=== PATIENT | female | born 1960 | race Caucasian/White ===

== ENCOUNTER 2017-04-13 17:26 | Emergency (ER) | payer OTHER ==
[~2017-04-13] VITALS: Ht 172.7 cm; Wt 68.0 kg
[2017-04-13] MEDS ORDERED: PRINIVIL10 MG PO (17:40)
[2017-04-13] MEDS ORDERED: CYMBALTA60 MG PO (17:40)
[2017-04-13] MEDS ORDERED: BUSPAR15 MG PO (17:41)
[2017-04-13] MEDS ORDERED: CELEXA20 MG PO (17:41)
[2017-04-13 18:21] LABS: BASO # 0.1 10*3/uL (0.0-0.1); BASO % 0.5 % (0.0-1.0); EOS # 0.1 10*3/uL (0.0-0.4); EOS % 0.7 % (1.0-4.0); HEMATOCRIT 41.3 % (37.0-47.0); LYMPH # 2.3 10*3/uL (1.3-4.4); LYMPH % 15.3 % (27.0-41.0); MEAN CELL VOLUME 86.4 fl (81.0-99.0); MEAN CORPUSCULAR HGB 29.3 pg (27.0-31.0); MEAN CORPUSCULAR HGB CONC 33.9 g/dl (33.0-37.0); MEAN PLATELET VOLUME 9.9 fl (9.6-12.3); MONO # 1.3 10*3/uL (0.1-1.0); MONO % 8.8 % (3.0-9.0); NEUT # 11.2 10*3/uL (2.3-7.9); NEUT % 73.9 % (47.0-73.0); PLATELET COUNT AUTOMATED 364 10*3/uL (130-400); RED BLOOD COUNT 4.78 10*6/uL (4.10-5.10); RED CELL DISTRI WIDTH 12.6 % (0-14.5); WHITE BLOOD COUNT 15.1 10*3/uL (4.8-10.8)
[2017-04-13 18:40] LABS: ALBUMIN 3.2 gm/dl (3.1-4.5); ALKALINE PHOSPHATASE 93 U/L (45-117); BUN 8 mg/dl (7-24); CHLORIDE 93 mmol/L (98-107); POTASSIUM 3.3 mmol/L (3.5-5.1); SGOT/AST 192 IU/L (3-35); SGPT/ALT 104 U/L (12-78); SODIUM 132 mmol/L (136-145); TOTAL PROTEIN 8.2 gm/dL (6.4-8.2)
[2017-04-13 18:52] LABS: TROPONIN I < 0.015 ng/ml (<0.045)
[2017-04-13] MEDS ORDERED: DUONEB 3 MG/3 ML3 M1 INH (19:25)
[2017-04-13] MEDS ORDERED: LEVOFLOXACIN500 MG PO (19:25)
[2017-04-13] MEDS ORDERED: PREDNISONE10 MG PO (19:25)
== END 2017-04-13 19:44 | disposition home or self-care (01) ==
LOC: ED 17:26
PROVIDERS: Registered Nurse
DX: R74.0 Nonspecific elevation of levels of transaminase and lactic acid dehydrogenase [LDH] (principal); J20.9 Acute bronchitis, unspecified; E87.6 Hypokalemia; E87.1 Hypo-osmolality and hyponatremia; Z79.899 Other long term (current) drug therapy

== ENCOUNTER 2017-04-20 06:15 | Inpatient (IN) | payer MEDICAID ==
[2017-04-20] VITALS (7 sets, daily range): BP systolic 105–138; BP diastolic 51–73
[~2017-04-20] VITALS: Ht 172.7 cm; Wt 80.0 kg
--- NOTE | ~2017-04-20 | CON ---
[place], [place] REPORT OF CONSULTATION NAME[id number] UNIT #: [id number] ROOM: 511 DOCTOR: ANUP KNIGHT ED.D (JUMANA) BIRTHDATE: [birth year] DOS: 04/22/2017 HISTORY OF PRESENT ILLNESS: The patient is a 56-year-old female referred for depression. At the present time, she is on the 5th floor at [facility]. She is and has 2 stepchildren. Her family physician is Dr. Momin and her medical history is pertinent for COPD, depression, hypertension and neuropathy. Her medications include albuterol, DuoNeb, BuSpar, Celexa, Cymbalta, Levaquin, Prinivil and prednisone. This patient drinks significant amounts of alcohol and also smokes 2 packs of cigarettes per day. She states she was seeing a physician in [place], [place], but the physician terminated her as a patient and she came to [place] for medical care. She was recently in the Emergency Department for influenza and is now back because of her breathing problems. She states she did have a psychologist or psychiatrist, but is uncertain of the psychologist or psychiatrist name. In my opinion, this patient would benefit from outpatient treatment. She also would benefit from psychiatric evaluation for medication management. I suggested to the hospitalist that Dr. Van be consulted. DIAGNOSES: 1. Major depressive disorder -- recurrent. 2. Alcohol abuse. RECOMMENDATIONS: 1. The patient would benefit from antidepressant medications. 2. The patient needs to follow up with outpatient care for her mental health related issues. Thank you very much for this consult. ANUP KNIGHT ED.D CM:CONSTR:REPORT OF CONSULTATION 1022 04/22/17 1038 interface
[~2017-04-20 06:15] MED LIST: BUSPAR5 MG PO; CELEXA20 MG PO; CYMBALTA60 MG PO; DUONEB 3 MG/3 ML3 M1 INH; LEVOFLOXACIN500 MG PO; PREDNISONE10 MG PO; PRINIVIL10 MG PO
[2017-04-20 06:56] LABS: HEMOGLOBIN 13.3 g/dl (12.0-16.0); MEAN CELL VOLUME 88.7 fl (81.0-99.0); MEAN CORPUSCULAR HGB 29.5 pg (27.0-31.0); MEAN CORPUSCULAR HGB CONC 33.3 g/dl (33.0-37.0); MEAN PLATELET VOLUME 9.3 fl (9.6-12.3); PLATELET COUNT AUTOMATED 482 10*3/uL (130-400); RED BLOOD COUNT 4.51 10*6/uL (4.10-5.10); RED CELL DISTRI WIDTH 13.2 % (0-14.5); WHITE BLOOD COUNT 27.4 10*3/uL (4.8-10.8)
[2017-04-20 07:13] LABS: ALBUMIN 3.2 gm/dl (3.1-4.5); CREATININE 1.32 mg/dL (0.55-1.02); TOTAL PROTEIN 7.4 gm/dL (6.4-8.2)
[2017-04-20 07:15] LABS: PLATELET SUFFICIENCY HIGH (NORMAL); TOTAL CELLS COUNTED 100 #CELLS
[2017-04-20 08:44] LABS: BILIRUBIN NEGATIVE (NEGATIVE); BLOOD 3+ (NEGATIVE); CLARITY SL CLOUDY (CLEAR); COLOR YELLOW (YELLOW); GLUCOSE TRACE (NEGATIVE); KETONE NEGATIVE (NEGATIVE); LEUKO ESTERASE 2+ (NEGATIVE); NITRITE NEGATIVE (NEGATIVE); PH 6.5 (5.0-9.0); UROBILINOGEN 0.2 E.U./dl (0.2-1.0)
[2017-04-20 08:55] LABS: BACTERIA 2+; RBC 21-30 rbc/hpf (0-2); URINE AMPHETAMINES < 1000 (1000ng/ml); URINE BARBITURATES < 200 (200ng/ml); URINE BENZODIAZEPINES < 200 (200ng/ml); URINE CANNABINOIDS (THC) > 50 (50ng/ml); URINE COCAINE > 300 (300ng/ml); URINE METHADONE < 300 (300ng/ml); URINE OPIATES > 300 (300ng/ml); WBC 41-50 wbc/hpf (0-5)
[2017-04-20 08:56] LABS: URINE PHENCYCLIDINE < 25 (25ng/ml)
[2017-04-20] MEDS ORDERED: PROAIR HFA8.5 GM INH (09:18)
[2017-04-20 17:56] LABS: ABG BASE EXCESS 6.8 mmol/L (-2.0-2.0); ABG HCO3 30.9 mmol/l (22-26); ABG O2 SATURATION 94.6 % (95-97); ARTERIAL BLOOD GAS PCO2 43.6 mmHg (35-45); ARTERIAL BLOOD GAS PH 7.465 (7.35-7.45); ARTERIAL BLOOD GAS PO2 71.9 mmHg (80-90)
[2017-04-21] VITALS: BP 122/53
[2017-04-21 07:03] LABS: BASO % 0.2 % (0.0-1.0); EOS # 0.1 10*3/uL (0.0-0.4); EOS % 0.4 % (1.0-4.0); HEMATOCRIT 39.8 % (37.0-47.0); HEMOGLOBIN 12.5 g/dl (12.0-16.0); LYMPH # 3.8 10*3/uL (1.3-4.4); LYMPH % 21.7 % (27.0-41.0); MEAN CELL VOLUME 91.5 fl (81.0-99.0); MEAN CORPUSCULAR HGB 28.7 pg (27.0-31.0); MEAN CORPUSCULAR HGB CONC 31.4 g/dl (33.0-37.0); MEAN PLATELET VOLUME 9.9 fl (9.6-12.3); MONO # 1.1 10*3/uL (0.1-1.0); MONO % 6.6 % (3.0-9.0); NEUT # 12.1 10*3/uL (2.3-7.9); NEUT % 70.3 % (47.0-73.0); PLATELET COUNT AUTOMATED 380 10*3/uL (130-400); RED BLOOD COUNT 4.35 10*6/uL (4.10-5.10); RED CELL DISTRI WIDTH 13.7 % (0-14.5); WHITE BLOOD COUNT 17.3 10*3/uL (4.8-10.8)
[2017-04-21 07:16] LABS: ALBUMIN 2.3 gm/dl (3.1-4.5); ALKALINE PHOSPHATASE 53 U/L (45-117); CHLORIDE 101 mmol/L (98-107); CREATININE 0.86 mg/dL (0.55-1.02); POTASSIUM 3.4 mmol/L (3.5-5.1); SGOT/AST 129 IU/L (3-35); SGPT/ALT 108 U/L (12-78); SODIUM 138 mmol/L (136-145); TOTAL PROTEIN 5.6 gm/dL (6.4-8.2)
[2017-04-21 07:17] LABS: PHOSPHOROUS 2.4 mg/dL (2.5-4.9)
[2017-04-21 07:31] LABS: BUN 10 mg/dl (7-24)
[2017-04-21 08:00] VITALS: BP 111/60
[2017-04-21 12:00] VITALS: BP 95/61
[2017-04-21 16:00] VITALS: BP 138/75
[2017-04-21 20:00] VITALS: BP 93/44
[2017-04-22 00:18] VITALS: BP 115/71
[2017-04-22 06:38] LABS: BASO % 0.3 % (0.0-1.0); EOS # 0.3 10*3/uL (0.0-0.4); EOS % 2.7 % (1.0-4.0); HEMATOCRIT 37.3 % (37.0-47.0); HEMOGLOBIN 11.6 g/dl (12.0-16.0); LYMPH # 2.7 10*3/uL (1.3-4.4); LYMPH % 22.7 % (27.0-41.0); MEAN CELL VOLUME 92.6 fl (81.0-99.0); MEAN CORPUSCULAR HGB 28.8 pg (27.0-31.0); MEAN CORPUSCULAR HGB CONC 31.1 g/dl (33.0-37.0); MEAN PLATELET VOLUME 9.7 fl (9.6-12.3); MONO % 8.7 % (3.0-9.0); NEUT # 7.5 10*3/uL (2.3-7.9); NEUT % 64.5 % (47.0-73.0); PLATELET COUNT AUTOMATED 362 10*3/uL (130-400); RED BLOOD COUNT 4.03 10*6/uL (4.10-5.10); RED CELL DISTRI WIDTH 13.8 % (0-14.5); WHITE BLOOD COUNT 11.7 10*3/uL (4.8-10.8)
[2017-04-22 06:58] LABS: BUN 6 mg/dl (7-24); CHLORIDE 105 mmol/L (98-107); CREATININE 0.58 mg/dL (0.55-1.02); PHOSPHOROUS 2.1 mg/dL (2.5-4.9); POTASSIUM 3.9 mmol/L (3.5-5.1); SODIUM 139 mmol/L (136-145)
[2017-04-22 08:00] VITALS: BP 110/45
[2017-04-22 12:00] VITALS: BP 118/65
[2017-04-22 16:00] VITALS: BP 120/71
[2017-04-22 20:45] VITALS: BP 116/69
[2017-04-23] VITALS: BP 117/63
[2017-04-23 06:30] VITALS: BP 131/68
[2017-04-23 07:10] LABS: BASO # 0.1 10*3/uL (0.0-0.1); BASO % 0.6 % (0.0-1.0); EOS # 0.3 10*3/uL (0.0-0.4); EOS % 3.2 % (1.0-4.0); HEMOGLOBIN 12.2 g/dl (12.0-16.0); LYMPH # 2.7 10*3/uL (1.3-4.4); MEAN CORPUSCULAR HGB 29.5 pg (27.0-31.0); MEAN CORPUSCULAR HGB CONC 32.1 g/dl (33.0-37.0); MEAN PLATELET VOLUME 9.4 fl (9.6-12.3); MONO # 0.8 10*3/uL (0.1-1.0); MONO % 7.3 % (3.0-9.0); NEUT # 6.7 10*3/uL (2.3-7.9); NEUT % 62.9 % (47.0-73.0); PLATELET COUNT AUTOMATED 339 10*3/uL (130-400); RED BLOOD COUNT 4.13 10*6/uL (4.10-5.10); RED CELL DISTRI WIDTH 13.7 % (0-14.5); WHITE BLOOD COUNT 10.7 10*3/uL (4.8-10.8)
[2017-04-23 07:21] LABS: BUN 6 mg/dl (7-24); CHLORIDE 106 mmol/L (98-107); CREATININE 0.64 mg/dL (0.55-1.02); PHOSPHOROUS 2.6 mg/dL (2.5-4.9); POTASSIUM 4.5 mmol/L (3.5-5.1); SODIUM 139 mmol/L (136-145)
== END 2017-04-23 11:00 | disposition left against medical advice (07) | DRG 871 ==
LOC: ED 06:15 → 5E 07:58 → EDHOLD 07:58 → 5E 08:19
PROVIDERS: Emergency Medicine; Emergency Medicine Emergency Medical Services; Internal Medicine
DX: A41.9 Sepsis, unspecified organism (principal); N17.0 Acute kidney failure with tubular necrosis; J96.01 Acute respiratory failure with hypoxia; E43 Unspecified severe protein-calorie malnutrition; E87.3 Alkalosis; K22.10 Ulcer of esophagus without bleeding; E83.39 Other disorders of phosphorus metabolism; J18.1 Lobar pneumonia, unspecified organism; E87.8 Other disorders of electrolyte and fluid balance, not elsewhere classified; E87.1 Hypo-osmolality and hyponatremia; N17.9 Acute kidney failure, unspecified; N39.0 Urinary tract infection, site not specified; F10.230 Alcohol dependence with withdrawal, uncomplicated; F33.9 Major depressive disorder, recurrent, unspecified; Z79.899 Other long term (current) drug therapy; G62.9 Polyneuropathy, unspecified; F14.10 Cocaine abuse, uncomplicated; R74.0 Nonspecific elevation of levels of transaminase and lactic acid dehydrogenase [LDH]; N20.0 Calculus of kidney; F17.210 Nicotine dependence, cigarettes, uncomplicated; E87.6 Hypokalemia; J44.9 Chronic obstructive pulmonary disease, unspecified; F12.10 Cannabis abuse, uncomplicated; R73.9 Hyperglycemia, unspecified; I10 Essential (primary) hypertension; F41.8 Other specified anxiety disorders; E83.42 Hypomagnesemia; K57.30 Diverticulosis of large intestine without perforation or abscess without bleeding; Z90.49 Acquired absence of other specified parts of digestive tract; Z90.710 Acquired absence of both cervix and uterus; Z80.8 Family history of malignant neoplasm of other organs or systems; Z68.22 Body mass index [BMI] 22.0-22.9, adult; Z82.49 Family history of ischemic heart disease and other diseases of the circulatory system; Z79.2 Long term (current) use of antibiotics

== ENCOUNTER 2017-04-26 07:38 | Emergency (ER) | payer MEDICAID ==
[~2017-04-26] VITALS: Ht 172.7 cm; Wt 72.6 kg
[~2017-04-26 07:38] MED LIST changes: +PROAIR HFA8.5 GM INH
[2017-04-26 08:21] LABS: HEMATOCRIT 41.3 % (37.0-47.0); HEMOGLOBIN 13.2 g/dl (12.0-16.0); MEAN CORPUSCULAR HGB 29.1 pg (27.0-31.0); MEAN PLATELET VOLUME 9.1 fl (9.6-12.3); PLATELET COUNT AUTOMATED 378 10*3/uL (130-400); RED BLOOD COUNT 4.54 10*6/uL (4.10-5.10); RED CELL DISTRI WIDTH 13.5 % (0-14.5); WHITE BLOOD COUNT 9.1 10*3/uL (4.8-10.8)
[2017-04-26 08:39] LABS: ALBUMIN 2.9 gm/dl (3.1-4.5); ALKALINE PHOSPHATASE 60 U/L (45-117); BUN 4 mg/dl (7-24); CHLORIDE 101 mmol/L (98-107); CREATININE 0.76 mg/dL (0.55-1.02); POTASSIUM 3.6 mmol/L (3.5-5.1); SGOT/AST 41 IU/L (3-35); SGPT/ALT 54 U/L (12-78); SODIUM 138 mmol/L (136-145)
[2017-04-26 08:40] LABS: BASOPHILS 1 % (0-1); TOTAL CELLS COUNTED 100 #CELLS
[2017-04-26 08:41] LABS: PLATELET SUFFICIENCY NORMAL (NORMAL)
[2017-04-26 09:52] LABS: BILIRUBIN NEGATIVE (NEGATIVE); BLOOD NEGATIVE (NEGATIVE); CLARITY SL CLOUDY (CLEAR); COLOR YELLOW (YELLOW); GLUCOSE NEGATIVE (NEGATIVE); KETONE NEGATIVE (NEGATIVE); LEUKO ESTERASE NEGATIVE (NEGATIVE); NITRITE NEGATIVE (NEGATIVE); UROBILINOGEN 0.2 E.U./dl (0.2-1.0)
[2017-04-26 10:05] LABS: BACTERIA TRACE; YEAST 1+
[2017-04-26] MEDS ORDERED: NAPROSYN500 MG PO (13:39)
== END 2017-04-26 13:45 | disposition home or self-care (01) ==
LOC: ED 07:38
PROVIDERS: Emergency Medicine
DX: R10.9 Unspecified abdominal pain (principal); J44.9 Chronic obstructive pulmonary disease, unspecified; F32.9 Major depressive disorder, single episode, unspecified; F41.9 Anxiety disorder, unspecified; I10 Essential (primary) hypertension; R73.9 Hyperglycemia, unspecified; E78.00 Pure hypercholesterolemia, unspecified; E83.42 Hypomagnesemia; E87.1 Hypo-osmolality and hyponatremia; E87.6 Hypokalemia; F17.200 Nicotine dependence, unspecified, uncomplicated; F10.10 Alcohol abuse, uncomplicated; E83.39 Other disorders of phosphorus metabolism; Z90.49 Acquired absence of other specified parts of digestive tract; Z79.899 Other long term (current) drug therapy; Z90.710 Acquired absence of both cervix and uterus